=== PATIENT | female | born 1965 | race Caucasian/White ===

== ENCOUNTER 2016-11-12 12:12 | Emergency (ER) | payer OTHER ==
[~2016-11-12 12:12] MED LIST: ALBU18HF INH; FLUO20CA25 PO; OMEP-113 PO; RNT300T PO; TIOT18CA3 IH
[2016-11-12 12:13] VITALS: BP 134/83; PULSE 88; RESP 17; O2SAT 96
--- NOTE | 2016-11-12 12:38 | ED.REPORT ---
HPI-Abd Pain F 40 and Over Date of Service Nov 12, 2016 ED Provider: Dr. Burden Pt is 51 y/o female w/ a hx of SBO, IBS w/ chronic constipation, presenting to the ED c/o diffuse abdominal pain onset 2 days ago. 2 days ago she began to experience diffuse abdominal cramping. Her pain worsened after eating. She then attempted to have a bowel movement but wasn't able to prompting her to use an enema which produced stool with associated minimal rectal bleeding. Last night she had diarrhea after a suppository and saw more minimal rectal bleeding. She vomited once 2 days ago but this is resolved. She does have a history of SBO and called her PCP today who recommended she come here. Pt denies fever, dysuria , change in chronic cough, SOB, CP. She has never had an abdominal surgery. She had a screening colonoscopy 2 years ago which was negative. Nursing Notes Stated Complaint: POSS OBSTRUCTION Chief Complaint: Female Abdominal Pain Nursing Notes Reviewed: Yes Allergies: Coded Allergies: No Known Drug Allergies (Verified Allergy, Unknown, 10/22/15) Scheduled Fluoxetine (Fluoxetine) 20 Mg Capsule 20 MG PO DAILY Omeprazole Magnesium (Omeprazole) 20 Mg Capsule.dr 20 MG PO DAILY Ranitidine (Zantac) 300 Mg Tab 300 MG PO DAILY Tiotropium [place] (Spiriva) 18 Mcg Cap.w.dev 18 MCG IH DAILY Scheduled PRN Albuterol Sulfate (Ventolin HFA Inhaler) 200 Puff/18 Gm Inhaler 1 PUFF INH Q4 PRN PRN For Wheezing General Time Seen by MD: 12:37 Chief Complaint Abdominal pain Hx Obtained From: Patient Arrived By: Walk-in Sudden in Onset?: No Onset Occurred: 2 days ago Symptom Duration: Since onset Progression since Onset: Intermittent Location: : Diffuse Quality: Cramping Severity: Current: Mild Severity: Maximum: Moderate Similar Sx Previous: Yes Past Medical History Past Medical History Asthma - uses inhaler and spirvia IBS with constipation Hx SBO COPD Chronic constipation Depression Anxiety Denies: Cancer, Coronary artery disease, Diabetes mellitus, Hypertension, Stroke Past Surgical History nose and sinus surgery Smoking History Current Every Day Smoker Social History Alcohol Use: Denies alcohol use Drug Use: THC Other Social History: Occupation lives in one story home, 4 steps into house Ambulatory Status Independent Review of Systems Constitutional: Denies: Chills, Fever Respiratory: Denies: Non-productive cough, Shortness of breath Cardiovascular: Denies: Chest pain GI: Reports: Abdominal pain, Constipation, Diarrhea, Hematochezia, Nausea, Vomiting Female: Denies: Dysuria Complete sys rev & neg: except as marked. Physical Exam Vital Signs Vital Signs (First) Date Time Temp Pulse Resp B/P Pulse Ox O2 Delivery O2 Flow Rate FiO2 11/12/16 12:13 36.8 88 17 134/83 96 Room Air Initial VS: Reviewed, Vital signs normal Head / Eyes: Atraumatic, Normocephalic ENT: Mucous membranes moist, Conjunctiva normal, No scleral icterus Neck: Supple, Full range of motion Extremities: Vascular intact, Neuro intact, No swelling Skin: Warm, Dry, No cyanosis Neurologic: Alert, Oriented, Nonfocal Psychiatric: Mood/affect normal, Behavior normal, Normal thought content General/Constitutional: Awake, Alert, No acute distress, Well appearing, Cooperative, Not toxic appearing Respiratory / Chest: Breath sounds NL, Breath sounds = bilat, No respiratory distress, No rales, No rhonchi, No wheezing Cardiovascular: Heart rate NL, Regular rhythm, Heart sounds NL, No murmurs Abdomen: Atraumatic, Soft, Non-tender, No guarding, No rebound, BS normoactive , No distention, No palpable mass Back: Full range of motion, Painless range of motion Interpretation & Diagnostics Lab Results Interpretation Result Diagram: 11/12/16 1312 11/12/16 1312 Test 11/12/16 13:12 11/12/16 13:31 White Blood Count 11.6th/mm3 (3.8-10.1) Red Blood Count 5.33mil/mm3 (3.90-5.20) Hemoglobin 16.7g/dL (12.0-15.6) Hematocrit 48.0% (35.0-46.0) Mean Corpuscular Volume 90.1fL (81-100) Mean Corpuscular Hemoglobin 31.3pg (27.0-35.0) Mean Corpuscular Hemoglobin Concent 34.8% (32.0-37.0) Red Cell Distribution Width 14.5% (12.3-15.4) Platelet Count 223bil/L (150-400) Neutrophils (%) (Auto) 71.3% (40-74) Lymphocytes (%) (Auto) 21.3% (14-46) Monocytes (%) (Auto) 6.1% (4-12) Eosinophils (%) (Auto) 0.9% (0-5) Basophils (%) (Auto) 0.2% (0-3) Sodium Level 137mEq/L (134-144) Potassium Level 4.2mEq/L (3.5-5.2) Chloride Level 97mEq/L (97-108) Carbon Dioxide Level 23mmol/L (18-29) Blood Urea Nitrogen 10mg/dL (6-24) Creatinine 0.73mg/dL (0.57-1.00) Estimat Glomerular Filtration Rate 119mL/min (>59) Glucose Level 102mg/dL (60-99) Calcium Level 9.1mg/dL (8.5-10.1) Total Bilirubin 0.6mg/dL (0.0-1.2) Aspartate Amino Transf (AST/SGOT) 16U/L (0-50) Alanine Aminotransferase (ALT/SGPT) 11U/L (0-32) Alkaline Phosphatase 99U/L (25-150) Total Protein 7.8g/dL (6.4-8.4) Albumin 4.1g/dL (3.4-5.0) Hold Xie Top Tube Received (Received) Urine Color Dark yellow (YELLOW) Urine Appearance Slightly cloudy Urine pH 5.5 (5.0-8.0) Urine Specific Harvey 1.030 (1.003-1.035) Urine Protein Tracemg/dL (NEG,TRACE) Urine Glucose (UA) Negativemg/dL (NEGATIVE) Urine Ketones Negativemg/dL (NEGATIVE) Urine Occult Blood Negative (NEGATIVE) Urine Nitrite Positive (NEGATIVE) Urine Bilirubin Negative (NEGATIVE) Urine Urobilinogen Normalmg/dL (NORMAL) Urine Leukocyte Esterase Negative (NEGATIVE) Urine RBC 0-2/hpf (0-2) Urine WBC 6-10/hpf (0-5) Urine Epithelial Cells Occasional/hpf (NONE-MOD) Urine Crystals None seen (NONE SEEN) Urine Bacteria Many/hpf (NONE-FEW) Urine Hyaline Casts None/lpf (NONE) Urine Granular Casts None seen (NONE SEEN) Urine Waxy Casts None seen (NONE SEEN) Urine Red Blood Cell Casts None seen (NONE SEEN) Urine White Blood Cell Casts None seen (NONE SEEN) Urine Mucus Present (None Seen) Urine Trichomonas None seen (NONE SEEN) Urine Yeast None (NONE SEEN) Urinalysis Comment None Urine Culture Reflexed Indicated Re-Eval/Medical Decision Source of Hx: Old records Re-Evaluation/Progress : Time of Eval: 14:48 Re-Evaluation/Progress Note: Pt rechecked. Discussed lab findings. Informed pt of plan for discharge. Pt understands and agrees with plan for discharge. F/U instructions and RTER warnings given. All questions addressed. Counseled Regarding: Diagnosis, Lab results, Need for follow-up, When/why to return to ED Discharge & Departure Primary Impression: UTI (urinary tract infection) Urinary tract infection type: site unspecified Hematuria presence: without hematuria Qualified Code: N39.0 - Urinary tract infection, site not specified Disposition: Home Discharge Condition All VS Reviewed: Yes Condition: Stable Patient Instructions: Urinary Tract Infection in Women (ED) Additional Instructions: Your labs today were reassuring. The urine showed signs of infection which I suspect is causing your symptoms. Take the full course of antibiotics (nitrofurantoin) as prescribed. Follow-up with your primary care doctor later this week or early next week if not improving. Return to the emergency department if you experience high fever, persistent vomiting, severe abdominal or back pain, profound weakness, or for other concerning symptoms. Referrals: Nahun Oshea MD (PCP) Scribe Attestation Portions of this note were transcribed by Jam Monaco. I, Dr. Burden, personally performed the history, physical exam and medical decision-making; I reviewed and confirmed the accuracy of the information in the transcribed note. copies to: Nahun Oshea MD, Kirk H MD Nov 12, 2016 12:38 JAM MONACO Nov 12, 2016 12:47 JAM MONACO Nov 12, 2016 12:47
[2016-11-12 13:20] LABS: BASOPHILS % (AUTO) 0.2 % (0-3); EOSINOPHILS % (AUTO) 0.9 % (0-5); MONOCYTES % (AUTO) 6.1 % (4-12); Mean Corpuscular Hemoglobin 31.3 pg (27.0-35.0); Mean Corpuscular Volume 90.1 fL (81-100); NEUTROPHILS % (AUTO) 71.3 % (40-74); Platelet Count 223 bil/L (150-400)
[2016-11-12 14:15] VITALS: BP 115/66; PULSE 69; RESP 16; O2SAT 94
[2016-11-12 14:28] LABS: APPEARANCE,URINE SLIGHTLY CLOUDY (CLEAR,HAZY); COLOR,URINE DARK YELLOW (YELLOW); OCCULT BLOOD,URINE NEGATIVE (NEGATIVE); PH,URINE 5.5 (5.0-8.0); UROBILINOGEN,URINE NORMAL (NORMAL)
[2016-11-12] MEDS ORDERED: NITR100 PO (15:22)
[2016-11-12] MEDS ORDERED: ONDA4TAB9 PO (15:22)
[2016-11-12 15:28] VITALS: BP 118/61; PULSE 70; RESP 16; O2SAT 96
== END 2016-11-12 15:27 | disposition home or self-care (01) ==
LOC: SED 12:12
DX: N39.0 Urinary tract infection, site not specified (principal); F17.200 Nicotine dependence, unspecified, uncomplicated